=== PATIENT | male | born 1980 | race American Indian/Alaskan Native ===

== ENCOUNTER 2017-08-04 16:12 | Emergency (ER) | payer MEDICAID ==
[2017-08-04 16:21] VITALS: TEMP 100
[2017-08-04] MEDS ORDERED: Albuterol-Ipratrop 3 mg / 0.5 (3 ml) UD ONE (16:24)
[2017-08-04] MEDS ORDERED: Albuterol-Ipratrop 3 mg / 0.5 (3 ml) UD IH STA ×3 (16:40→16:50)
--- NOTE | 2017-08-04 17:00 | ED PDOC ---
Arrival/HPI - General Historian: Patient, Partner - History of Present Illness Time/Duration: 24 hours Symptom Onset: Sudden Symptom Course: Worsening Quality: Tightness Activities at Onset: Rest, Light Context: Home, Work - General Chief Complaint: Shortness Of Breath Time Seen by Provider: 08/04/17 16:15 - History of Present Illness Narrative History of Present Illness (Text): 08/04/17 16:52 Mr. Woodward is a 37 year old male with a past medical history significant for asthma who presents to the [facility] ED with a complaining of SOB, wheezing, chest congestion and productive cough. Patient reports that since yesterday afternoon he has been SOB with associated wheezing. He reports that since that time he has also had a cough productive of white sputum with occasional streaks of green. He denies any fever, chills, weight loss, rhinorrhea, or sore throat. He reports that he has been seen at a hospital for asthma exacerbations in the past (mostly at [facility]) but hasn't had an exacerbation in more than 5 years. He had been seen at a family clinic previously this week for a normal check-up and they prescribed him an albuterol inhaler but he hasn't had time to pick it up from the pharmacy due to his work schedule. Patient also reports that his biggest trigger is cigarette smoke and he recently started smoking cigarettes three months ago. He denies any chest pain, palpitations, abdominal pain, N/V, diarrhea, constipation, burning/pain with urination, rash, or any numbness/ tingling/weakness of any of his extremities. (TERRY RAMIRES) Past Medical History - Provider Review Nursing Documentation Reviewed: Yes - Travel History Have you recently traveled outside [place] w/in the past 3 mons?: No - Past History Past History: Non-Contributing - Infectious Disease Hx of Infectious Diseases: None - Cardiac Hx Cardiac Disorders: No Hx Cardiac Arrhythmia: No - Pulmonary Hx Respiratory Disorders: Yes Hx Asthma: Yes - Neurological Hx Multiple Sclerosis: No - HEENT Hx Macular Degeneration: No - Hematological/Oncological Hx Blood Disorders: Yes Hx Anemia: Yes - Integumentary Hx Cellulitis: No - Gastrointestinal Hx Bowel Surgery: No - Genitourinary/Gynecological Hx Genitourinary Disorders: No - Psychiatric Hx Psychosis: No Hx Substance Use: No - Surgical History Hx Amputation: No - Anesthesia Hx Anesthesia: No Family/Social History - Physician Review Nursing Documentation Reviewed: Yes Family/Social History: Other (His mother and his children have asthma) Smoking Status: Current Some Days Smoker Hx Alcohol Use: No Hx Substance Use: No Allergies/Home Meds Allergies/Adverse Reactions: Allergies shellfish derived Allergy (Verified 08/04/17 16:18) ANAPHYLAXIS Home Medications: Home Meds Medication Instructions Recorded Confirmed Ferrous Sulfate [Feosol] 0 mg PO DAILY 08/04/17 08/04/17 Review of Systems - Physician Review All systems were reviewed & negative as marked: Yes - Review of Systems Constitutional: Normal. absent: Weight Change, Fevers, Night Sweats Eyes: Normal. absent: Vision Changes ENT: Normal. absent: Sore Throat, Rhinorrhea Respiratory: SOB, Cough, Sputum (white with streaks of green), Wheezing. absent : Normal Cardiovascular: Normal. absent: Chest Pain, Palpitations Gastrointestinal: Normal. absent: Abdominal Pain, Constipation, Diarrhea, Nausea, Vomiting Genitourinary Male: Normal. absent: Dysuria Musculoskeletal: Normal. absent: Back Pain, Neck Pain Skin: Normal. absent: Rash Neurological: Normal. absent: Headache, Dizziness Endocrine: Normal Hemo/Lymphatic: Normal Psychiatric: Normal Physical Exam Vital Signs Reviewed: Yes Temperature: Afebrile Blood Pressure: Normal Pulse: Tachycardic Respiratory Rate: Normal Appearance: Positive for: Well-Appearing, Non-Toxic, Uncomfortable Pain Distress: None Mental Status: Positive for: Alert and Oriented X 3 - Systems Exam Head: Present: Atraumatic, Normocephalic Pupils: Present: PERRL Extroacular Muscles: Present: EOMI Conjunctiva: Present: Normal Mouth: Present: Moist Mucous Membranes Pharnyx: Present: Normal. No: ERYTHEMA, EXUDATE, TONSILS ENLARGED Nose (External): Present: Atraumatic Nose (Internal): Present: Normal Inspection. No: No Active Bleeding, Clear Mucous, Rhinorrhea Neck: Present: Normal Range of Motion, Trachea Midline. No: Meningeal Signs, MIDLINE TENDERNESS, Paraspinal Tenderness, JVD, Lymphadenopathy Respiratory/Chest: Present: Good Air Exchange, Accessory Muscle Use, Wheezes ( bilateral expiratory wheezing mostly in upper lobes). No: Clear to Auscultation , Respiratory Distress, Decreased Breath Sounds, Rales, Retracting, Rhonchi, Tachypneic, Tender to Palpation Cardiovascular: Present: Regular Rate and Rhythm, Normal S1, S2, Peripheal Pulses Present. No: Murmurs, Irregular Rhythm, Tachycardic, Bradycardic Abdomen: Present: Normal Bowel Sounds. No: Tenderness, Distention, Peritoneal Signs Back: Present: Normal Inspection. No: CVA Tenderness, Midline Tenderness, Paraspinal Tenderness Upper Extremity: Present: Normal Inspection, Normal ROM, NORMAL PULSES, Capillary Refill < 2s. No: Cyanosis, Edema Lower Extremity: Present: Normal Inspection, NORMAL PULSES, Normal ROM, Capillary Refill < 2 s. No: Edema, CALF TENDERNESS Neurological: Present: GCS=15, CN II-XII Intact, Speech Normal Skin: Present: Warm, Dry, Normal Color. No: Rashes Lymphatic: No: Cervical Adenopathy Psychiatric: Present: Alert, Oriented x 3, Normal Insight, Normal Concentration Vital Signs Temp Pulse Resp BP Pulse Ox 08/04/17 18:25 106 H 18 117/81 99 08/04/17 16:20 100.0 F H 105 H 19 115/80 96 Medical Decision Making - Lab Interpretations I have reviewed the lab results: Yes - RAD Interpretation Baling Press Operator: Radiologist - EKG Interpretation Interpreted by ED Physician: Yes Type: 12 lead EKG ED Course and Treatment: 08/04/17 17:05 Impression: 37 year old male with a past medical history significant for asthma who presents to the [facility] ED with a complaining of SOB, wheezing, chest congestion and productive cough. Plan: -CBC, CMP and UA -Chest X-Ray (portable) -EKG -Duoneb and 125mg IV solumedrol -Reassess and disposition Prior Visits: No prior visits 08/04/17 18:00 Urinalysis results were discussed with patient as well as patients anemia. Patient stated that he has "always been anemic" but couldn't recall what his hemoglobin numbers were. Patient preferred to see research software engineer as an outpatient and take PO antibiotics for his UTI. Patient signed out AMA. (TERRY RAMIRES) Patient Seen With Resident: In agreement with resident note which contains more details about the patient. Patient was seen and evaluated with resident. Came up with plan and treatment together. (Ivan Cedillo) - Lab Interpretations Lab Results: 08/04/17 16:25 08/04/17 16:25 Lab Results 08/04/17 17:50: Urine Color Yellow, Urine Appearance Clear, Urine pH 6.5, Ur Specific [place] 1.020, Urine Protein Trace H, Urine Glucose (UA) Negative, Urine Ketones Trace H, Urine Blood Negative, Urine Nitrate Negative, Urine Bilirubin Negative, Urine Urobilinogen 1.0 H, Ur Leukocyte Esterase Trace H, Urine RBC 1 - 3, Urine WBC 25 - 30, Ur Epithelial Cells 1 - 3, Urine Bacteria Many 08/04/17 16:25: Sodium 138, Potassium 3.5 L, Chloride 103, Carbon Dioxide 25, Anion Gap 14, BUN 13, Creatinine 1.1, Est GFR ( Amer) > 60, Est GFR (Non- Af Amer) > 60, Random Glucose 153 H, Calcium 8.9, Total Bilirubin 0.4, AST 31, ALT 20, Alkaline Phosphatase 62, Total Protein 7.2, Albumin 4.1, Globulin 3.2, Albumin/Globulin Ratio 1.3 08/04/17 16:25: WBC 8.3, RBC 4.32, Hgb 8.6 L, Hct 27.9 L, MCV 64.6 L, MCH 19.9 L , MCHC 30.8 L, RDW 15.7 H, Plt Count 245, MPV 9.2, Gran % 83.9 H, Lymph % (Auto ) 8.7 L, Hunt % (Auto) 5.2, Eos % (Auto) 2.1, Baso % (Auto) 0.1, Gran # 6.96 H, Lymph # 0.7 L, Hunt # 0.4, Eos # 0.2, Baso # 0.01 - RAD Interpretation Radiology Orders: 08/04/17 16:43 CHEST PORTABLE [RAD] Stat IMPRESSION: No focal consolidation, significant pleural effusion, or definite pneumothorax identified. (TERRY RAMIRES) - EKG Interpretation EKG Interpretation (Text): 08/04/17 17:06 Sinus tachycardia (TERRY RAMIRES) - Medication Orders Current Medication Orders: Discontinued Medications Acetaminophen (Tylenol 325mg Tab) 650 mg PO STAT STA Stop: 08/04/17 16:51 Last Admin: 08/04/17 17:09 Dose: 650 mg MAR Pain/Vitals Document 08/04/17 17:09 OCS (Rec: 08/04/17 17:10 OCS [id number]) Pain Reassessment Is This A Pain ReAssessment? Yes Sleep Is patient sleeping during reassessment? No Presence of Pain Presence of Pain Yes Pain Scale Used Pain Scale Used Numeric Albuterol/Ipratropium (Duoneb 3 Mg/0.5 Mg (3 Ml) Ud) 3 ml IH STAT STA Stop: 08/04/17 16:41 Last Admin: 08/04/17 17:10 Dose: 3 ml Albuterol/Ipratropium (Duoneb 3 Mg/0.5 Mg (3 Ml) Ud) 3 ml IH STAT STA Stop: 08/04/17 16:51 Last Admin: 08/04/17 17:20 Dose: 3 ml Albuterol/Ipratropium (Duoneb 3 Mg/0.5 Mg (3 Ml) Ud) 3 ml IH STAT STA Stop: 08/04/17 16:51 Last Admin: 08/04/17 17:15 Dose: 3 ml Methylprednisolone (Solu-Medrol) 125 mg IVP STAT STA Stop: 08/04/17 16:41 Last Admin: 08/04/17 17:08 Dose: 125 mg IVP Administration Document 08/04/17 17:08 OCS (Rec: 08/04/17 17:08 OCS [id number]) Charges for Administration # of IVP Administrations 1 Potassium Chloride (K-Dur 20 Meq Er Tab) 40 meq PO STAT STA Stop: 08/04/17 17:47 Last Admin: 08/04/17 17:58 Dose: 40 meq Disposition/Present on Arrival - Present on Arrival Any Indicators Present on Arrival: No History of DVT/PE: No History of Uncontrolled Diabetes: No Urinary Catheter: No History of Decub. Ulcer: No History Surgical Site Infection Following: None - Disposition Have Diagnosis and Disposition been Completed?: Yes Disposition Time: 18:02 - Disposition Diagnosis: Asthma exacerbation Disposition: AGAINST MEDICAL ADVICE Condition: GOOD Discharge Instructions (ExitCare): Asthma (ED), How to Stop Smoking (ED), Urinary Tract Infection in Men (ED), Anemia (DC) Additional Instructions: Mr. Woodward, thank you for letting us take care of you today. Your provider was Dr. eCdillo. You were treated for asthma exacerbation. The emergency medical care you received today was directed at your acute symptoms. If you were prescribed any medication, please fill it and take as directed. It may take several days for your symptoms to resolve. Return to the Emergency Department if your symptoms worsen, do not improve, or if you have any other problems. Please contact your doctor or call one of the physicians/clinics you have been referred to that are listed on the Patient Visit Information form that is included in your discharge packet. Bring any paperwork you were given at discharge with you along with any medications you are taking to your follow up visit. Our treatment cannot replace ongoing medical care by a primary care provider (PCP) outside of the emergency department. PLEASE FOLLOW UP WITH YOUR PRIMARY CARE DOCTOR WITHIN ONE WEEK. A REFERRAL FOR HEMATOLOGY IS RECOMMENDED. ATTACHED YOU WILL FIND CONTACT INFORMATION TO SCHEDULE AN APPOINTMENT. Thank you for allowing the [employer] [facility] team to be part of your care today. If you had an X-Ray or CT scan: A Radiologist will review the ED reading if any change in treatment is needed we will contact you. Prescriptions: Albuterol 0.083% [Albuterol 0.083% Inhal Jazz (2.5 mg/3 ml) UD] 2.5 mg IH Q4 PRN #20 PRN Reason: Wheezing Cefpodoxime [Vantin] 100 mg PO BID #28 tab Mask, Face [Nebulizer Aerosol Mask Adult] 1 dev XX PRN PRN #1 dev PRN Reason: Wheezing Nebulizer [Aeroeclipse II] 1 each MC Q4 PRN #1 each PRN Reason: Wheezing Prednisone 50 mg PO DAILY #5 tablet Referrals: PCP,NO [Primary Care Provider] - Follow up with primary Gary Bautista MD [Staff Provider] - Follow up with primary Forms: [email or web address] (Telugu) Against Medical Advice
--- NOTE | 2017-08-04 17:01 | RAD ---
HISTORY: Asthma exacerbation COMPARISON: None available. TECHNIQUE: Chest, one view. FINDINGS: Examination limited by habitus. LUNGS: No focal consolidation. PLEURA: No significant pleural effusion identified. No definite pneumothorax . CARDIOVASCULAR: Heart size appears within normal limits. OSSEOUS STRUCTURES: No acute osseous abnormality identified. VISUALIZED UPPER ABDOMEN: Unremarkable. OTHER FINDINGS: None. IMPRESSION: No focal consolidation, significant pleural effusion, or definite pneumothorax identified.
[2017-08-04 17:17] LABS: BASO # 0.01 K/mm3 (0.0-2.0); BASO % 0.1 % (0.0-3.0); EOS # 0.2 (0.0-0.7); EOS % 2.1 % (1.5-5.0); GRAN # 6.96 (1.4-6.5); GRAN % 83.9 % (50.0-68.0); HEMATOCRIT 27.9 % (42.0-52.0); LYMPH # 0.7 (1.2-3.4); LYMPH % 8.7 % (22.0-35.0); MEAN CELL VOLUME 64.6 fl (80.0-105.0); MEAN CORPUSCULAR HEMOGLOBIN 19.9 pg (25.0-35.0); MEAN CORPUSCULAR HGB CONC 30.8 g/dl (31.0-37.0); MEAN PLATELET VOLUME 9.2 fl (7.0-11.0); MONO # 0.4 (0.1-0.6); MONO % 5.2 % (1.0-6.0); RED CELL DISTRIBUTION WIDTH 15.7 % (11.5-14.5); WHITE BLOOD COUNT 8.3 10^3/ul (4.5-11.0)
[2017-08-04 17:32] LABS: ALB/GLOB RATIO 1.3 (1.1-1.8); ALKALINE PHOSPHATASE 62 U/L (38-126); ALT/SGPT 20 U/L (7-56); AST/SGOT 31 U/L (17-59); BILIRUBIN,TOTAL 0.4 mg/dL (0.2-1.3); BLOOD UREA NITROGEN 13 mg/dL (7-21); CALCIUM 8.9 mg/dL (8.4-10.5); CARBON DIOXIDE 25 mmol/L (21-33); CHLORIDE 103 mmol/L (98-107); GFR AFRICAN-AMERICAN > 60; GLUCOSE,RANDOM 153 mg/dL (70-110); POTASSIUM 3.5 mmol/L (3.6-5.0); SODIUM 138 mmol/L (132-148); TOTAL PROTEIN 7.2 g/dL (5.8-8.3)
[2017-08-04] MEDS ORDERED: Potassium Chloride 20 mEq ER Tab PO STA (17:46)
[2017-08-04 18:06] LABS: PH,URINE 6.5 (4.7-8.0); URINE BILIRUBIN NEGATIVE (NEGATIVE); URINE BLOOD NEGATIVE (NEGATIVE); URINE GLUCOSE (UA) NEGATIVE (NEGATIVE); URINE KETONE TRACE mg/dL (NEGATIVE); URINE LEUKOCYTE ESTERASE TRACE Leu/uL (NEGATIVE); URINE PROTEIN TRACE mg/dL (<30 mg/dL)
[2017-08-04 18:18] LABS: URINE APPEARANCE CLEAR (CLEAR); URINE COLOR YELLOW (YELLOW)
[2017-08-04 18:20] LABS: URINE BACTERIA MANY (NEG); URINE WBC 25 - 30 /hpf (0-6)
[2017-08-04 18:27] VITALS: BP 117/81; PULSE 106; RESP 18; O2SAT 99
--- NOTE | 2017-08-04 21:55 | CARD ---
APPROVED REPORT EKG Measurement Heart [id number] <Conclusion> Sinus tachycardia Incomplete right bundle branch block Nonspecific T wave abnormality Abnormal ECG
== END 2017-08-04 18:25 | disposition left against medical advice (07) ==
LOC: ED 16:12
DX: J45.901 Unspecified asthma with (acute) exacerbation (principal); F17.210 Nicotine dependence, cigarettes, uncomplicated
CPT/HCPCS: 71010; 80053; 81001; 85025; 87086; 93005; 96374; 99285; J2930